=== PATIENT | male | born 1945 | race Caucasian/White ===

== ENCOUNTER → 2017-02-18 | Day surgery (SDC) | payer MEDICARE ==
[~2017-02-18] VITALS: Ht 175.3 cm; Wt 98.0 kg
[~2017-02-18] MED LIST: ASPI-973 PO; CeFAZolin 2 Gm/50 mL D5W Duplex Bag IV ONE; Dexamethasone 4 mg/mL Inj IVPUSH PRN; EPHEDrine Sulfate 50 mg/mL Inj IVPUSH PRN; HYDR-4003 PO; HYDROcodone-APAP 5-325 mg Tablet PO PRN; HYDROmorphone 1 mg/mL Inj IVPUSH PRN; Lactated Ringer's 1,000 ML IV ONE; Lactated Ringer's 1,000 ML IV SCH; Lactated Ringer's 500 ML IV PRN; METF500T4 PO; MetoCLOpramide 5 mg/mL 2 mL Inj IVPUSH PRN; ONDA-53 PO; ONDA2VIA IV; Ondansetron 2 mg/mL 2 mL Inj IVPUSH PRN; Ondansetron 2 mg/mL 2 mL Inj ONE; Phenylephrine 10,000 mCg/mL Inj IVPUSH PRN; Propofol 10,000 mCg/mL 20 mL Inj ONE; TAMS0.4C98 PO; fentaNYL-PF 50 mCg/mL 2 mL Inj IVPUSH PRN; fentaNYL-PF 50 mCg/mL 2 mL Inj ONE
[2017-02-18 16:10] VITALS: BP 113/62; PULSE 86; RESP 16; O2SAT 95
--- NOTE | 2017-02-18 17:17 | PCM.HPANE ---
Patient Data Surgeon Admitting Provider: Attending Provider:Milind Alamo MD Primary Care Physician:Elkin Other Provider:Juanpablo Campbell Anesthesia Reason for Visit Ureteral Stone Ht/WT & BMI Height (Feet): 5 Height (Inches): 9.00 Weight (Kilograms): 98.000 Body Mass Index 32.00 Allergies Coded Allergies: oxycodone (Verified Adverse Reaction, Severe, itching, 02/18/17) Past Anesthesia History Anesthesia History: Denies:: Anesthesia Reactions, Fam Anesthesia Reaction, Fam Malignant Hypertherm, Malignant Hyperthermia Diabetes History Hx Diabetes?: Yes Type of Diabetes: Type II Glycemic Control: Oral Medication Current Bedside Blood Glucose: 89 MRSA MRSA: No Medications Home Meds Incl Beta Bronwyn: No Reported Medications Ondansetron 4 Mg Tablet4 Mg PO 02/18/17 Hydrocodone-Acetaminophen 5-325 mg 1 Each Tablet1 Tablet PO Q4H PRN For Pain #2 TABLET Ref 0 02/18/17 Aspirin 81 Mg [id number] Mg PO DAILY Ref 0 02/18/17 Tamsulosin (Flomax)0.4 Mg Capsule0.4 Mg PO BID Ref 0 02/18/17 Metformin 500 Mg [id number] Mg PO BID #2 TABLET Ref 0 02/18/17 Discontinued Reported Medications Ondansetron 2 Mg/1 Ml Vial2 Mg IV 02/18/17 History History of ENT Problems?: Yes HEENT History: Denies:: Abnormal Airway Cataracts Difficult Intubation Dysphagia Glaucoma Hearing Problem Sinus Problem TMJ Denture Type: None Teeth Condition: Within Normal Limits Other HEENT Pertinent History: Neck surgery times three Hx of Heart Problems?: No Cardiovascular History: Denies:: AICD Abdominal Aortic Aneurism Atrial Fibrillation Cardiac Surgery Chest Pain Congestive Heart Failure Coronary Artery Disease Edema Heart Murmur Hypertension Irregular Heartbeat Pacemaker Peripheral Vascular Rheumatic Fever Thrombophlebitis Valvular Heart Disease Hx of Respiratory Problem?: No Respiratory History: Denies:: Asthma COPD Chest Surgery Cough Dyspnea Emphysema Hemoptysis Oxygen Administration Pneumonia Pulmonary Embolism Tuberculosis Use of C-PAP Machine Use of Inhalers / NEBS Hx Neurologic Problems?: No Hx of GI Problems?: No Gastrointestinal History: Denies:: Cirrhosis Diverticulitis Gall Bladder Disease Gastroesphageal Reflux Gastrointestinal Bleeding Heartburn Hepatitis Hiatal Hernia Liver Disease Rectal Bleeding Hx of Problems?: Yes Genitourinary History: Positive for:: Kidney Stones (Left) Male Hx: Positive for:: Prostate Problems (enlarged but psa 2.1) Hx Musculoskeletal Problems?: Yes Musculoskeletal History: Positive for:: Musculoskeletal Trauma (s/p neck surgery- 3 times) Denies:: Back Injury Degenerative Joint Fibromyalgia Joint Replacement Myasthenia Gravis Osteoarthritis Rheumatoid Arthritis Systemic Lupus Hx of Psycho/Social Problems?: No Hx Surgeries?: Yes (Hips dinorah. Lo back. L knee. neck x3. catarract) Hx Any Other Health Problems?: No Other History: Positive for:: Hospitalization Denies:: Cancer Endocrine Disease Thyroid Disease Hx Diabetes: YesBedside Blood Glucose: 89 Hx Alcohol Use: Yes (rarely)Hx Substance Use: No Stop/Bang S-Snoring: Do You Snore Loudly: No T-Tired: feel tired, fatigued: No O-Obsered: Observed not breath: No P-Blood Pressure: treated: No B- Body Mass Index > 35 kg/m2: No A- Age over 50: Yes N- Neck Large Circumference: No G- Gender Male: Yes JAVI Total Score: 2 JAVI Risk Assessment: Low Risk, <3 Yes Risk Assessment Category Category 1A: Patient has history of documented sleep apnea, and HAS NOT received any narcotic, sedative or anesthesia administration during this stay. Category 1B: Patient has history of documented sleep apnea, and HAS received any narcotic , sedative or anesthesia administration during this stay Category 2: Patient has SUSPECTED Obstructive Sleep Apnea, and HAS received any narcotic , sedative or anesthesia administration during this stay. Category 3: Patient has SUSPECTED Obstructive Sleep Apnea and HAS NOT received narcotic, sedative or anesthesia administration during this stay. Category 4: Outpatient in Procedural Areas with known sleep apnea or who screen positive for High Risk via the STOP/BANG questionnaire. Exam Exam Vital Signs Vital Signs Date Time Temp Pulse Resp B/P Pulse Ox O2 Delivery O2 Flow Rate FiO2 02/18/17 16:10 36.6 86 16 113/62 95 Room Air General Appearance: Alert HEENT/AIRWAY: MP 2 Lungs: Clear to Auscultation Heart: Exam Unremarkable Meds/Labs/Diagnostics Admission Meds Current Medications Lactated Ringer's (Lr) 1,000 ml @ ud STK-MED ONCE IV Last administered on 02/18t 16:12; Start 02/18/17 at 16:12; Stop 02/18/17 at 16:13; Status DC Bedside Blood Glucose: 89 Plan Impression Patient chart reviewed, patient interviewed and anesthestic plan with risks, benefits, and alternatives discussed, and informed consent obtained. ASA Physical Status: ASA2 Mod Systemic Disease Anesthetic Plan: GA Bene/Risks/Altern/Consents: Yes HP Complete Prior to Induction: Yes Melba Nix MD Feb 18, 2017 17:17
[2017-02-18 18:47] VITALS: BP 123/75; PULSE 87; RESP 11; O2SAT 98
--- NOTE | 2017-02-18 18:51 | PCM.ANEP1 ---
Post Anesthesia PACU Phase 1 Assessment Vital Signs Vital Signs Date Time Temp Pulse Resp B/P Pulse Ox O2 Delivery O2 Flow Rate FiO2 02/18/17 18:47 36.8 87 11 123/75 98 Simple Mask 8 02/18/17 16:10 36.6 86 16 113/62 95 Room Air Anesthetic Administered: GA Level of Alertness: Awake, talking ZENG's with Equal Strength: Yes Pain: No Nausea or Vomiting: No CV Function & Hydration Stable: Yes Airway Device: Oxygen Delivery: Room Air Lungs: Clear to Auscultation PACU Phase 2 Assessment Complications: No Follow up Care: No Patient Instructions Provided: Yes Melba Nix MD Feb 18, 2017 18:51
[2017-02-18 18:57] VITALS: BP 118/75; PULSE 87; RESP 12; O2SAT 97
[2017-02-18 19:02] VITALS: BP 117/76; PULSE 86; RESP 12; O2SAT 97
[2017-02-18 19:05] VITALS: BP 122/75; PULSE 68; RESP 15; O2SAT 98
[2017-02-18 19:45] VITALS: BP 114/56; PULSE 68; RESP 14; O2SAT 96
--- NOTE | 2017-02-18 20:08 | OP ---
[address] [address] OPERATIVE REPORT PATIENT: CASANDRA RODRÍGUEZ : 1945 MR#: [id number] ADMIT: 02/18/2017 JOB ID: [id number] DATE OF SURGERY: 02/18/2017 SURGEON: Milind Alamo MD. PREOPERATIVE DIAGNOSIS(ES): 1. Obstructing 5 x 3 mm left distal ureteral calculus. 2. Intractable left renal colic. POSTOPERATIVE DIAGNOSIS(ES): 1. Obstructing 5 x 3 mm left distal ureteral calculus. 2. Intractable left renal colic. ANESTHESIOLOGIST: Melba Nix MD. ANESTHESIA: General. FINDINGS: Urethra normal. External sphincter intact. Prostate 4+ cm length with obstructing lateral lobe hyperplasia and elevated median bar. Bladder 1 to 2+ trabeculation. Normal orifices bilaterally. Clear efflux seen on the right, none on the left. The left distal ureteral calculus was identified in the expected position about 4 cm above the left ureterovesical junction. PROCEDURE SUMMARY: The patient was positioned supine. He was administered general anesthetic. He was then repositioned in semilithotomy and the lower abdomen, genitalia, and groin were prepped and draped in sterile fashion. A 22-Cypriot panendoscope was then passed to the lower urinary tract with the findings as described above. Next, a 0.35 Glidewire was advanced to the left collecting system under direct and fluoroscopic guidance. Over this, a 15-Cypriot x 6 cm balloon dilating catheter was advanced over the Glidewire and positioned across the left ureterovesical junction. It was then inflated to 18 atmospheres and held in position for 5 minutes after which the balloon was deflated. All instrumentation was backloaded off the Glidewire. Now the semi-rigid ureteroscope was introduced in the lower urinary tract and then into the left distal ureter whereupon the stone was encountered as expected. A 3-Cypriot zero-tip helical three-wire basket was selected. This was advanced through the scope, advanced proximal to the stone. The stone was then engaged carefully and was removed on the first attempt. Next the panendoscope was backloaded onto the Glidewire, and over this, a 6-Cypriot x 22-32 cm multi-length stent was selected. This was positioned satisfactorily in the left collecting system under direct and fluoroscopic guidance. A RETRIEVAL LINE WAS LEFT ATTACHED. The bladder was then drained completely. All instrumentation was removed a final time. The patient was then repositioned supine, was transferred to a gurney, awake in stable condition.
--- NOTE | 2017-02-18 20:10 | OP ---
[address] [address] OPERATIVE REPORT PATIENT: CASANDRA RODRÍGUEZ : 1945 MR#: [id number] ADMIT: 02/18/2017 JOB ID: [id number] DATE OF SURGERY: 02/18/2017 PREOPERATIVE DIAGNOSIS(ES): 1. Obstructing 5 x 3 mm left distal ureteral calculus. 2. Intractable left renal colic. POSTOPERATIVE DIAGNOSIS(ES): 1. Obstructing 5 x 3 mm left distal ureteral calculus. 2. Intractable left renal colic. OPERATION PERFORMED: Cystoscopy, left ureter . SURGEON: Milind Alamo MD ANESTHESIOLOGIST: Mebla Nix MD ANESTHESIA: General. FINDINGS: Urethra normal. External sphincter intact. Prostate 4.5 cm in length with obstructing bilobar hyperplasia and elevated median bar. Bladder 1 to 2+ trabeculation. Normal orifice on the right with clear efflux. The orifice on the left was normal; efflux was not seen over a period of about a minute of observation. Following manipulation with the Glidewire, cloudy efflux seen emanating from the highly obstructed . The calculus was encountered approximately 4 cm above the ureterovesical junction. PROCEDURE SUMMARY: The patient was positioned in semilithotomy and the lower abdomen, genitalia, and groin were prepped and draped in sterile fashion. The 22-Canadian panendoscope was passed to the lower urinary tract. Findings as described above. Next, a 0.35 Glidewire was advanced to the collecting system under direct and fluoroscopic guidance. Over this, a 6 cm 15-Canadian dilating catheter was advanced across the left ureterovesical junction, and then inflated to 18 atmospheres and left in that position for approximately 5 minutes, after which the balloon was deflated. All instrumentation was then backloaded off the Glidewire. Now the semi-rigid ureteroscope then used; it was advanced into the left distal collecting system with the findings as described above. Next, a 3-Canadian Zero Tip helical 3-wire basket was selected. This was advanced under direct visualization proximal to the calculus; it was opened, carefully withdrawn, and the stone was engaged. INCOMPLETE DICTATION: Dictation ends here.
== END | disposition home or self-care (01) ==
LOC: SAS 15:04
PROVIDERS: ATTEND Specialist
DX: N20.1 Calculus of ureter (principal); N23 Unspecified renal colic; E11.9 Type 2 diabetes mellitus without complications; N40.1 Benign prostatic hyperplasia with lower urinary tract symptoms; R97.20 Elevated prostate specific antigen [PSA]; Z79.82 Long term (current) use of aspirin; Z96.642 Presence of left artificial hip joint; Z85.46 Personal history of malignant neoplasm of prostate; Z79.84 Long term (current) use of oral hypoglycemic drugs
CPT/HCPCS: 52332; 52352; 76000; 82360; C2617; J0690; J7120